=== PATIENT | male | born 1980 | race Caucasian/White ===

== ENCOUNTER 2017-11-21 15:46 | Emergency (ER) | payer OTHER ==
[2017-11-21] MEDS ORDERED: Acetaminophen/HYDROcodone 325-10 MG Tab PO ONE (15:59)
--- NOTE | 2017-11-21 16:49 | CR ---
Clinical history: 37-year-old male left chest wall (rib) injury. Interpretation: Oblique left rib detail films unremarkable. No sign of left rib fracture, underlying lung contusion, atelectasis, dependent pleural effusion or l eft-sided pneumothorax. Normal cardiac silhouette. No left lung mass or lobar pneumonia. No foreign bodies.
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
== END 2017-11-21 17:16 | disposition home or self-care (01) ==
LOC: DL.ED 15:46
DX: S20.212A Contusion of left front wall of thorax, initial encounter (principal); S00.81XA Abrasion of other part of head, initial encounter; R03.0 Elevated blood-pressure reading, without diagnosis of hypertension; W22.8XXA Striking against or struck by other objects, initial encounter
CPT/HCPCS: 71100; 81001; 99284; A9270

== ENCOUNTER 2022-06-11 09:24 | Emergency (ER) | payer SELFPAY | END 2022-06-11 10:04 | disposition home or self-care (01) | LOC: DL.ED 09:24 | DX: M72.2 Plantar fascial fibromatosis (principal); I10 Essential (primary) hypertension | CPT/HCPCS: 73630-LT; 99283 ==